=== PATIENT | male | born 1975 | race Caucasian/White ===

== ENCOUNTER 2017-08-01 23:30 | Observation (INO) | payer SELFPAY ==
[2017-08-01] MEDS ORDERED: Nitroglycerin 0.4 MG TAB (25 Tab Bottle) ONE (23:44)
[2017-08-02 00:08] LABS: #Basophils 0.1 thou/uL (0.0-0.2); #Eosinphils 0.1 thou/uL (0.0-0.7); #Lymphocytes 3.4 thou/uL (1.20-3.40); #Monocytes 0.7 thou/uL (0.11-0.59); #Neutrophils 4.1 thou/uL (1.40-6.50); %Basophils 1.2 % (0.0-1.0); %Eosinophils 1.7 % (0.0-10.0); %Lymphocytes 40.2 % (21.0-51.0); Mean Platelet Volume 7.7 fL (7.4-10.4); Red Blood Cell (RBC) Count 4.96 mill/uL (4.70-6.10); White Blood Cell (WBC) Count 8.4 thou/uL (4.8-10.8)
[2017-08-02 00:22] LABS: ALT (SGPT) 23 U/L (8-55); AST (SGOT) 19 U/L (5-34); Alkaline Phosphatase 61 U/L (40-150); Anion Gap 13 mmol/L (10-20); BUN (Urea Nitrogen) 18 mg/dL (8.9-20.6); Bilirubin, Total 0.3 mg/dL (0.2-1.2); Calc. Creatinine Clearance 0 mL/min (70-130); Calcium 9.6 mg/dL (7.8-10.44); Carbon Dioxide 26 mmol/L (22-29); Chloride 106 mmol/L (98-107); Estimated GFR-MDRD Greater than 90; Globulin 2.7 g/dL (2.4-3.5); Protein, Total 6.7 g/dL (6.0-8.3)
[2017-08-02 00:25] LABS: Troponin I Less than 0.010 ng/mL (< 0.028)
[2017-08-02] MEDS ORDERED: Nitroglycerin 2% Ointment 1 INCH/1 GM Packet ONE (00:42)
[2017-08-02 02:34] VITALS: BMI 33.7
[2017-08-02] MEDS ORDERED: Acetaminophen 325 MG TAB PO PRN (02:56)
[2017-08-02] MEDS ORDERED: Nitroglycerin 0.4 MG TAB (25 Tab Bottle) PO PRN (02:56)
[2017-08-02] MEDS ORDERED: Ondansetron ODT 4 MG TAB PO PRN (02:56)
[2017-08-02] MEDS ORDERED: Sodium Chloride 0.9% 1,000 ML IV SCH (03:00)
[2017-08-02 03:46] LABS: Magnesium 2.4 mg/dL (1.6-2.6); Phosphorus 3.6 mg/dL (2.3-4.7)
[2017-08-02 03:47] LABS: Lipase 391 U/L (8-78)
[2017-08-02 03:49] LABS: Troponin I Less than 0.010 ng/mL (< 0.028)
[2017-08-02] MEDS ORDERED: Lidocaine 2% Viscous Solution 20 ML, Aluminum & Magnesium Hydroxide 30 ML, Donnatal Eli... SSW SCH ×3 (04:00)
[2017-08-02] MEDS: Nitroglycerin 2% Ointment 1 INCH/1 GM Packet TOP SCH ×2 (05:46→12:46)
[2017-08-02 06:52] LABS: Troponin I 0.011 ng/mL (< 0.028)
[2017-08-02 07:09] LABS: Bilirubin Negative (Negative); Blood, Urine Negative (Negative); Glucose, Urine (Dipstick) Negative (Negative); Ketone, Urine Negative (Negative); Nitrite Negative (Negative); Protein, Urine (Dipstick) Negative (Neg-Trace)
[2017-08-02 07:34] LABS: Amphetamine Not Detected (NotDetected); Methadone Not Detected (NotDetected); Methamphetamine Not Detected (NotDetected)
[2017-08-02] MEDS ORDERED: Aspirin 325 MG TAB PO SCH ×2 (08:00)
--- NOTE | 2017-08-02 08:12 | RAD ---
PA AND LATERAL CHEST: Date: 08/02/17 HISTORY: Angina. Patient unable to find nitroglycerin spray. Onset of symptoms occurred 1 hour ago. History of coronary artery disease. COMPARISON: None available. FINDINGS: The cardiac silhouette and pulmonary vasculature are within normal limits. The lungs are clear. The o sseous structures are intact. IMPRESSION: No acute cardiopulmonary process. POS: [facility]
[2017-08-02] MEDS ORDERED: Enoxaparin Sodium 40 MG/0.4 ML SYRINGE SC SCH (09:00)
[2017-08-02] MEDS ORDERED: FLU VACC QS2017-18 36 mo. & older 0.5 ML SYRINGE IM ONE (09:00)
[2017-08-02] MEDS ORDERED: Famotidine 20 MG TAB PO SCH (09:00)
[2017-08-02] MEDS: Sodium Chloride 0.9% 1,000 ML IV SCH ×2 (09:27→10:59)
[2017-08-02 12:32] VITALS: TEMP 97.5
--- NOTE | 2017-08-02 14:03 | NM ---
NUCLEAR MEDICINE MYOCARDIAL PERFUSION STUDY: Date: 08/02/17 COMPARISON: None. HISTORY: Chest pain. TECHNIQUE: SPECT imaging of the left ventricular myocardium obtained during rest and stress following the intrav enous administration of 33.0 and 11.0 mCi technetium-99m labeled sestamibi. FINDINGS: There is a questionable very small reversible defect at the cardiac apex versus physiologic thinning and soft tissue attenuation. The latter is favored as there is normal wall motion in the region of th e apex on this examination. Clinical correlation is required. Otherwise, no fixed or reversible defec t is evident. TID is 1.03. Left ventricular ejection fraction is 59% with an EDV of 142 mL and an ESV of 58 mL. Normal left ventricular wall motion noted. IMPRESSION: Very small questionable reversible defect at cardiac apex versus attenuation as above. Wall motion in this region appears normal. There is normal left ventricular ejection fraction. POS: [facility]
[2017-08-02] MEDS ORDERED: Regadenoson 0.4 MG/5 ML SYRINGE ONE (14:42)
--- NOTE | 2017-08-02 17:25 | HP-2 ---
DATE OF SERVICE: 08/02/2017 DATE OF ADMISSION: 08/02/2017 LOCATION: [facility] in [place], [place]. CODE STATUS: FULL. PRIMARY CARE PHYSICIAN: CC. ATTENDING PHYSICIAN: Dr. Haley Simmons. RESIDENT PHYSICIAN: Dr. Zhao Jean. HISTORIAN: History provided by patient. CHIEF COMPLAINT: Chest pain. HISTORY OF PRESENT ILLNESS: A 41-year-old male with past medical history of coronary artery vasospasm, which was diagnosed in outside hospital by an unknown residential monitor that was previously being treated with sublingual nitro, presented for acute onset chest pain, which he described as sharp in nature, located at central left sternal with radiation to the back and associated epigastric pain. He reports he was walking around [facility] when symptoms started and there are no exacerbating factors; however, he did have relief with sublingual nitro, which was given in the emergency department at [facility]. He did report some associated shortness of breath or dizziness at onset, which subsequently resolved with administration of nitro in the ED. He had no associated nausea, vomiting or diaphoresis. In the ER, he was given 325 mg of aspirin, nitro paste half-inch and sublingual nitro tab, unknown dose. PAST MEDICAL HISTORY: Coronary artery vasospasm. PAST SURGICAL HISTORY: Hernia repair, appendectomy, tonsillectomy, tracheostomy. ALLERGIES: VICODIN. MEDICATIONS: Nitrospray 400 mcg per spray used p.r.n. for chest pain. FAMILY HISTORY: Unknown. SOCIAL HISTORY: Patient has a 97-amps-ebdx smoking history and smokeless tobacco use for approximately 1/2 pack per day over the last 2 years. He admits to occasional alcohol use. He reports he had some drinks today, but last previous drink was over 6 months ago. Denies drug use. REVIEW OF SYSTEMS: General: No fever, chills, or night sweats. No fatigue. Eyes: No vision changes. ENT: No nasal congestion, rhinorrhea, or sore throat. Respiratory: No cough, congestion. The patient points shortness of breath. Cardiovascular: Complains of chest pain. Denies palpitations, edema, and orthopnea. Gastrointestinal: Patient complains of abdominal pain, epigastric location. No nausea, vomiting, diarrhea, or constipation. Skin: No rashes or lesions. Musculoskeletal: Complains of pain, tenderness, stiffness, swelling, arthritis and arthralgias. Neuro: Complains of dizziness which resolved with nitro. Denies weakness, numbness or syncope. Psychiatric: Denies anxiety, depression. PHYSICAL EXAMINATION: VITAL SIGNS: Blood pressure 138/66, pulse 60, respiratory rate 20, T-max 98.1, pulse ox 97 on room air. Current weight 100 kilograms. GENERAL: Patient is alert and oriented, in no acute distress. Well-developed, well-nourished, appropriately interactive. HEENT: Pupils are equal, round, react to light with accommodation. Extraocular muscles intact. Conjunctivae within normal limits. ENT: Oropharynx within normal limits noted. NECK: Supple, without lymphadenopathy. No thyromegaly. CARDIOVASCULAR: Regular rate and rhythm. No murmurs, rubs or gallops. Radial pulse 2+. Pedal pulse 2+. RESPIRATORY: Normal effort, no retractions. LUNGS: Clear to auscultation bilaterally. SKIN: Warm and dry. No cyanosis. ABDOMEN: Soft, nontender, normoactive bowel sounds in all 4 quadrants. No masses, distention or organomegaly. EXTREMITIES: No clubbing, cyanosis or edema. MUSCULOSKELETAL: Structure within normal limits. Tone within normal limits. NEUROLOGIC: No focal deficits. GCS 15. PSYCHIATRIC: Appropriately interactive. LABORATORY DATA: White blood cell 8.4, hemoglobin 14.2, hematocrit 45, platelets 218. Sodium 141, potassium 4.2, chloride 106, bicarb 26, BUN 18, creatinine 0.81, glucose 108, calcium 9.6, total protein 6.7, albumin 4.0, AST 19, ALT 23, alkaline phosphatase 61, total bilirubin 0.3. D-dimer less than 0.27. CK-MB is 0.8. Initial troponin I is less than 0.010. EKG showed "nonspecific ST abnormality" however, there was no EKG in the patient's chart on arrival. This read was obtained from the prior ER physician's note. Chest x-ray showed no acute disease. ASSESSMENT AND PLAN: 1. Atypical chest pain. Troponins are negative x1. We will trend troponins x3. Plan for an a.m. stress test. We will repeat electrocardiogram. Patient will be placed on a tele monitor and monitored overnight, plan for morning echocardiogram. We will check TSH, magnesium, phosphorus, urine drug screen, alcohol, lipase, BNP. Patient was given nitro p.r.n. for chest pain. Continue on aspirin 325 mg daily, statin 40 mg at bedtime. We will check a morning fasting lipid panel. Patient was counseled on tobacco cessation. Consider a panic disorder versus anxiety, if organic causes are ruled out. 2. Tobacco abuse, relocation counselor on cessation. 3. Prophylaxis. Lovenox 40 mg per day and Pepcid 20 mg b.i.d. for deep venous thrombosis and gastrointestinal prophylaxis respectively. DISPOSITION AND LENGTH OF HOSPITAL STAY: Less than or equal to 2 days, stable condition. Symptomatic medication will be provided. History and physical exam as well as management discussed with Dr. Haley Simmons who agrees with the above history, physical exam, assessment and plan unless otherwise noted in her dictation. RAFFY
--- NOTE | 2017-08-02 17:27 | ADD-HP ---
DATE OF SERVICE: 08/02/2017 CHIEF COMPLAINT: Chest pain. 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 Over the course of his hospitalization, the patient's presenting story has changed multiple times. To me, he noted that he started having s ome burning chest pain that radiated through to his back. He was out of nitroglycerin and subsequent ly went to the ER. In the ER, he received 3 doses of nitroglycerin and his pain resolved. Cardiac e nzymes have been negative. The patient was placed in observation and will be having a stress test th morning. The patient initially refused a nuclear medicine stress test and then he refused an exer cise stress test and is back to agreeing to a nuclear medicine stress test again. Labs revealed a mi ldly elevated lipase. The patient states that he has no more pain at this point in time and is feeli ng much better. If the patient's stress test is negative, he will likely be discharged home. During my exam, the patient had no tenderness to palpation in his abdomen at all. I have personally review ed history and physical as well as assessment and plan with Dr. Jean and repeated pertinent portion s myself. I agree with his documentation. Please see his H&P for full details.
[2017-08-02 18:00] VITALS: BP 110/58
[2017-08-02] MEDS ORDERED: Atorvastatin Calcium 40 MG TAB PO SCH (21:00)
--- NOTE | 2017-08-05 08:46 | EKG ---
Test Reason : Blood Pressure : / mmHG Vent. Rate : 048 BPM Atrial Rate : 048 BPM P-R Int : 148 ms QRS Dur : 090 ms QT Int : 426 ms P-R-T Axes : 038 045 036 degrees QTc Int : 380 ms Marked sinus bradycardia with sinus arrhythmia Early repolarization Abnormal ECG No previous ECGs available Confirmed by Krishna HIGGINS ([id number]) on 08/05/2017 8:45:41 AM Referred By: DARON Confirmed By:Krishna HIGGINS
--- NOTE | 2017-08-06 11:38 | DIS-2 ---
DATE OF ADMISSION: 08/02/2017 DATE OF DISCHARGE: 08/02/2017 RESIDENT: Bessy Garcia D.O. ADMITTING ATTENDING: Dr. Haley Simmons. DISCHARGE ATTENDING: Dr. Haley Simmons. DISCHARGE ATTENDING: Dr. Haley Simmons. CONSULTATIONS: None. PROCEDURES/IMAGING: Chest x-ray was done showed no acute cardiopulmonary process and echo was done, which showed ejection fraction of 55%-60% with trace mitral regurgitation and trace tricuspid regurgi tation and mildly dilated left atrium. A stress test was performed, which showed a very small questi onable reversible defect at the cardiac apex versus attenuation. Wall motion appeared normal and the re was normal left ventricular ejection fraction. PRIMARY DIAGNOSES: Atypical chest pain, likely secondary to gastroesophageal reflux disease. SECONDARY DIAGNOSES: 1. History of coronary vasospasm per patient. 2. Tobacco abuse. DISCHARGE MEDICATIONS: 1. Nitroglycerin tablet 0.3 mg sublingual every 5 minutes p.r.n. 2. Aspirin 325 mg p.o. daily. 3. Famotidine 20 mg p.o. b.i.d. 4. Atorvastatin calcium 40 mg p.o. at bedtime. DISCONTINUED MEDICATIONS: None. HISTORY OF PRESENT ILLNESS AND HOSPITAL COURSE: The patient is a 41-year-old male with past medical history of coronary artery vasospasm, which was diagnosed at an outside hospital and requested record s, but never or so. He also takes sublingual nitro p.r.n. for chest pain. The chest pain was locate d at the central left sternal, now radiated to the back and associated with epigastric pain. Reporte d that he was walking around the [facility], doing [employer] shopping when the symptoms started. In the ED, he was found to have negative troponins x3, as well as an abnormal CBC and a D-dimer that was le ss than 0.27. The patient was admitted for a ACS workup, fasting lipid panel were drawn as well as T SH, which were both within normal limits. Although, patient has significant cardiac history, the way the patient describes the pain sounds more like GI in nature. He reported some diarrhea 2 days prio r to the onset and states that the pain started at chest and radiated to the epigastrium and continue d to have epigastric pain even after nitroglycerin was placed. Stress test was mildly abnormal with questionable reversible defect. The patient has a good followup with deskidding machine operator and since we have no records, he was advised to follow up with him outpatient for determining a need for a catheterizat ion. The patient was given Pepcid 20 mg b.i.d. and discharged home in stable condition. DISPOSITION: Stable. DISCHARGE INSTRUCTIONS: 1. Location: Home. 2. Diet: Heart healthy diet. 3. Activity: As tolerated. 4. Follow up in 1 week with deskidding machine operator and establish care with PCP here in town.
== END 2017-08-02 19:18 | disposition home or self-care (01) ==
LOC: SCSER 23:30 → 2SW 08-02 01:42
PROVIDERS: ADMIT Family Medicine; ATTEND Family Medicine
DX: R07.89 Other chest pain (principal); F17.200 Nicotine dependence, unspecified, uncomplicated; Z79.82 Long term (current) use of aspirin; Z79.899 Other long term (current) drug therapy; Z88.6 Allergy status to analgesic agent; Z88.5 Allergy status to narcotic agent; Z93.0 Tracheostomy status; Z90.49 Acquired absence of other specified parts of digestive tract; Z90.89 Acquired absence of other organs; Z98.890 Other specified postprocedural states
CPT/HCPCS: 36415; 71020; 78452; 80053; 80061; 80306; 80307; 81003; 82553; 83615; 83690; 83735; 83880; 84100; 84443; 84484; 85025; 85379; 90471; 90682; 90732; 93005; 93010; 93017; 93306; 94760; 96360; 96361; 96372; 99406; A9500; G0008; G0009; G0378; J1650; J2785; Q0162; Q2036

== ENCOUNTER 2017-10-19 12:11 | Emergency (ER) | payer SELFPAY ==
--- NOTE | 2017-10-19 13:19 | RAD ---
RIGHT HAND THREE VIEWS: HISTORY: Crush injury to right hand. 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 FINDINGS: There is a flexion deformity at the PIP joint of the fifth finger. There is no evidence of acute fra cture or dislocation identified. POS: [facility]
[2017-10-19] MEDS ORDERED: Ibuprofen 800 MG TAB ONE (13:30)
== END 2017-10-19 13:35 | disposition home or self-care (01) ==
LOC: SCSER 12:11
DX: S60.221A Contusion of right hand, initial encounter (principal); I25.10 Atherosclerotic heart disease of native coronary artery without angina pectoris; Z87.891 Personal history of nicotine dependence; Z79.899 Other long term (current) drug therapy; W20.8XXA Other cause of strike by thrown, projected or falling object, initial encounter

== ENCOUNTER 2019-05-23 18:12 | Emergency (ER) | payer BC, SELFPAY ==
[2019-05-23 19:08] LABS: Anion Gap 22 mmol/L (10-20); BUN (Urea Nitrogen) 25 mg/dL (8.9-20.6); CK (CPK) 386 U/L (30-200); Calc. Creatinine Clearance 0 mL/min (70-130); Calcium 11.1 mg/dL (7.8-10.44); Carbon Dioxide 21 mmol/L (22-29); Chloride 102 mmol/L (98-107); Estimated GFR-MDRD 29; Glucose 107 mg/dL (70-105); Magnesium 2.3 mg/dL (1.6-2.6); Potassium 4.6 mmol/L (3.5-5.1); Sodium 140 mmol/L (136-145)
== END 2019-05-23 21:13 | disposition home or self-care (01) ==
LOC: SCSER 18:12
DX: E86.0 Dehydration (principal); I25.10 Atherosclerotic heart disease of native coronary artery without angina pectoris; F17.210 Nicotine dependence, cigarettes, uncomplicated; Z79.899 Other long term (current) drug therapy; Z79.82 Long term (current) use of aspirin
CPT/HCPCS: 80048; 82550; 83735; 96360; 96361

== ENCOUNTER 2022-01-19 13:03 | Emergency (ER) | payer SELFPAY ==
[2022-01-19] MEDS ORDERED: predniSONE 20 MG TAB ONE ×2 (14:40→15:38)
[2022-01-19 15:03] LABS: #Basophils 0.1 thou/uL (0.0-0.2); #Eosinphils 0.1 thou/uL (0.0-0.7); #Lymphocytes 3.3 thou/uL (1.20-3.40); #Monocytes 0.9 thou/uL (0.11-0.59); #Neutrophils 5.2 thou/uL (1.40-6.50); %Basophils 1.1 % (0.0-1.0); %Eosinophils 0.9 % (0.0-10.0); %Lymphocytes 34.5 % (21.0-51.0); %Monocytes 8.9 % (0.0-10.0); %Neutrophils 54.7 % (42.0-75.0); Hemoglobin 16.1 g/dL (14.0-18.0); Mean Corpuscular HGB CONC 32.2 g/dL (32.0-36.0); Mean Corpuscular Hemoglobin 30.8 pg (27.0-31.0); Mean Corpuscular Volume 95.6 fL (78.0-98.0); Mean Platelet Volume 7.6 fL (7.4-10.4); Platelet Count 230 thou/uL (130-400); RBC Distribution Width 12.6 % (11.5-14.5); Red Blood Cell (RBC) Count 5.22 mill/uL (4.70-6.10); White Blood Cell (WBC) Count 9.6 thou/uL (4.8-10.8)
== END 2022-01-19 16:01 | disposition home or self-care (01) ==
LOC: ERS 13:03
DX: S92.532A Displaced fracture of distal phalanx of left lesser toe(s), initial encounter for closed fracture (principal); M72.2 Plantar fascial fibromatosis; R21 Rash and other nonspecific skin eruption; F17.200 Nicotine dependence, unspecified, uncomplicated; W19.XXXA Unspecified fall, initial encounter
CPT/HCPCS: 36415; 85025; J7512

== ENCOUNTER 2022-04-05 18:54 | Emergency (ER) | payer SELFPAY ==
[~2022-04-05 18:54] MED LIST: Iopamidol-370 76% 500 ML 1 ML ONE
[2022-04-05] MEDS ORDERED: Aspirin 325 MG TAB ONE (19:33)
[2022-04-05 19:38] LABS: #Basophils 0.1 thou/uL (0.0-0.2); #Eosinphils 0.1 thou/uL (0.0-0.7); #Lymphocytes 3.3 thou/uL (1.20-3.40); #Monocytes 0.9 thou/uL (0.11-0.59); #Neutrophils 5.1 thou/uL (1.40-6.50); %Basophils 0.6 % (0.0-1.0); %Eosinophils 0.8 % (0.0-10.0); %Lymphocytes 35.4 % (21.0-51.0); %Monocytes 9.5 % (0.0-10.0); %Neutrophils 53.7 % (42.0-75.0); Hemoglobin 14.2 g/dL (14.0-18.0); Mean Corpuscular Hemoglobin 30.2 pg (27.0-31.0); Mean Corpuscular Volume 94.4 fL (78.0-98.0); Mean Platelet Volume 7.8 fL (7.4-10.4); Platelet Count 238 thou/uL (130-400); RBC Distribution Width 12.1 % (11.5-14.5); Red Blood Cell (RBC) Count 4.69 mill/uL (4.70-6.10); White Blood Cell (WBC) Count 9.4 thou/uL (4.8-10.8)
[2022-04-05 19:58] LABS: ALT (SGPT) 28 U/L (8-55); AST (SGOT) 19 U/L (5-34); Albumin 4.2 g/dL (3.5-5.0); Alkaline Phosphatase 62 U/L (40-110); Anion Gap 12 mmol/L (10-20); BUN (Urea Nitrogen) 16 mg/dL (8.9-20.6); Bilirubin, Total 0.4 mg/dL (0.2-1.2); Calc. Creatinine Clearance 0 mL/min (70-130); Calcium 9.6 mg/dL (7.8-10.44); Carbon Dioxide 27 mmol/L (22-29); Chloride 105 mmol/L (98-107); Estimated GFR 98; Glucose 87 mg/dL (70-105); Potassium 4.6 mmol/L (3.5-5.1); Protein, Total 7.2 g/dL (6.0-8.3); Sodium 139 mmol/L (136-145)
== END 2022-04-05 22:33 | disposition home or self-care (01) ==
LOC: ERS 18:54
DX: R07.89 Other chest pain (principal); I10 Essential (primary) hypertension; E78.5 Hyperlipidemia, unspecified; I25.10 Atherosclerotic heart disease of native coronary artery without angina pectoris; F17.220 Nicotine dependence, chewing tobacco, uncomplicated; Z79.01 Long term (current) use of anticoagulants; Z79.899 Other long term (current) drug therapy
CPT/HCPCS: 36415; 71045; 71275; 80053; 84484; 85025; 93005; Q9967